=== PATIENT | female | born 1990 | race Caucasian/White ===

== ENCOUNTER 2018-01-07 02:58 | Emergency (ER) | payer OTHER ==
[~2018-01-07] VITALS: Ht 170.2 cm; Wt 73.5 kg
[2018-01-07 03:08] VITALS: Ht 170.2 cm; Wt 73.5 kg
[2018-01-07 03:44] LABS: UA SPECIFIC GRAVITY >=1.030 (1.005-1.035); microscopic required? YES; urine erythrocyte 3+ (NEGATIVE)
[2018-01-07 03:47] LABS: BASOPHIL % 0.6 % (0-2); PLATELET COUNT 242 x10^3mcL (130-400); RED CELL DISTRIBUTION WIDTH 13.9 % (11.5-14.5)
[2018-01-07 04:01] LABS: AST/SGOT 2 U/L (15-37)
[2018-01-07 04:24] LABS: ALBUMIN 3.7 g/dL (3.4-5.0); ALKALINE PHOSPHATASE 70 U/L (46-116); ALT/SGPT 55 U/L (14-59); CALCIUM 8.4 mg/dL (8.5-10.1); CARBON DIOXIDE 23.4 mmol/L (21-32); CHLORIDE SERUM 108 mmol/L (98-107); CREATININE SERUM 0.8 mg/dL (0.6-1.0); GFR1 > 60 mL/min; GLUCOSE SERUM 131 mg/dL (74-106); LIPASE 102 IU/L (73-393); POTASSIUM SERUM 3.7 mmol/L (3.5-5.1); SODIUM SERUM 145 mmol/L (136-145); TOTAL PROTEIN, SERUM 7.6 g/dL (6.4-8.2)
[2018-01-07 08:19] VITALS: BP 130/87
== END 2018-01-07 08:19 | disposition home or self-care (01) ==
LOC: ED 02:58
PROVIDERS: Emergency Medicine
DX: R10.9 Unspecified abdominal pain (principal); R10.2 Pelvic and perineal pain
CPT/HCPCS: J2270; J2405; Q9967

== ENCOUNTER 2018-12-24 16:31 | Emergency (ER) | payer OTHER ==
[~2018-12-24] VITALS: Ht 162.6 cm; Wt 80.3 kg
[2018-12-24 16:53] VITALS: BP 109/67; Ht 162.6 cm; Wt 80.3 kg
== END 2018-12-24 18:30 | disposition home or self-care (01) ==
LOC: ED 16:31
DX: R09.1 Pleurisy (principal)
CPT/HCPCS: J1885

== ENCOUNTER 2020-03-20 07:57 | Emergency (ER) | payer OTHER, SELFPAY ==
[~2020-03-20] VITALS: Ht 170.2 cm; Wt 77.1 kg
[2020-03-20 08:10] VITALS: Ht 170.2 cm; Wt 77.1 kg
[2020-03-20 09:31] VITALS: BP 129/91
== END 2020-03-20 09:31 | disposition home or self-care (01) ==
LOC: ED 07:57
DX: R07.89 Other chest pain (principal); R05 Cough
CPT/HCPCS: Q0092; U0003-CS